=== PATIENT | female | born 1980 | race Caucasian/White ===

== ENCOUNTER 2017-11-23 05:21 | Day surgery (SDC) | payer OTHER ==
[2017-11-21 13:15] VITALS: BMI 28.3
[2017-11-23 17:34] VITALS: BP 110/60
[2017-11-23 17:39] VITALS: PULSE 58; TEMP 97.8
== END 2017-11-23 13:30 | disposition home or self-care (01) ==
LOC: JASU-SURG 05:21
PROVIDERS: ATTEND Orthopaedic Surgery
PROC: 0MM24ZZ Reattachment of Left Shoulder Bursa and Ligament, Percutaneous Endoscopic Approach (ICD-10-PCS; principal; 2017-11-23)
DX: S43.432A Superior glenoid labrum lesion of left shoulder, initial encounter (principal); X58.XXXA Exposure to other specified factors, initial encounter; Y93.9 Activity, unspecified; Y92.9 Unspecified place or not applicable; Y99.9 Unspecified external cause status
CPT/HCPCS: 84703; 88304-TC; 94760